=== PATIENT | male | born 1980 | race Caucasian/White ===

== ENCOUNTER → 2022-06-30 10:18 | Outpatient (BNVA) | payer OTHER, SELFPAY | PROVIDERS: Visit Provider Family Medicine | DX: R53.83 Other fatigue (principal) | CPT/HCPCS: 85025 ==

== ENCOUNTER → 2022-07-04 07:59 | Outpatient (BNVA) | payer OTHER, SELFPAY | PROVIDERS: Visit Provider Family Medicine | DX: R53.83 Other fatigue (principal) | CPT/HCPCS: 80061; 82040; 84270; 84403; 84439; 84443; 85025 ==

== ENCOUNTER → 2022-07-17 10:33 | Outpatient (BNVA) | payer OTHER, SELFPAY | PROVIDERS: Visit Provider Family Medicine | DX: R53.83 Other fatigue (principal) | CPT/HCPCS: 85025 ==

== ENCOUNTER → 2022-12-19 13:46 | Outpatient (BNVA) | payer OTHER, SELFPAY | PROVIDERS: Visit Provider Nurse Practitioner Family | DX: R19.7 Diarrhea, unspecified (principal); R50.9 Fever, unspecified; R53.83 Other fatigue | CPT/HCPCS: 80053; 85025; 87400 ==

== ENCOUNTER → 2024-01-04 09:47 | Outpatient (BNVA) | payer OTHER, SELFPAY | PROVIDERS: PCP Nurse Practitioner Family; Visit Provider Nurse Practitioner Family | DX: E78.00 Pure hypercholesterolemia, unspecified (principal) | CPT/HCPCS: 80053; 80061; 84443 ==

== ENCOUNTER → 2024-08-01 11:00 | Outpatient (BNVA) | payer OTHER, SELFPAY | PROVIDERS: PCP Nurse Practitioner Family; Visit Provider Nurse Practitioner Family | DX: E78.00 Pure hypercholesterolemia, unspecified (principal) | CPT/HCPCS: 80053; 80061 ==

== ENCOUNTER → 2025-08-21 08:41 | Outpatient (BNVA) | payer OTHER, SELFPAY | PROVIDERS: PCP Nurse Practitioner Family; Visit Provider Nurse Practitioner Family | DX: E78.00 Pure hypercholesterolemia, unspecified (principal) | CPT/HCPCS: 80053; 80061; 85025 ==

== ENCOUNTER → 2025-09-11 09:44 | Outpatient (BNVA) | payer OTHER, SELFPAY | PROVIDERS: PCP Nurse Practitioner Family; Visit Provider Nurse Practitioner Family | DX: R74.01 Elevation of levels of liver transaminase levels (principal) | CPT/HCPCS: 86705; 86706; 86709; 86803; 87340 ==

== ENCOUNTER 2025-09-25 06:16 | Outpatient (CLI) | payer OTHER, SELFPAY ==
--- NOTE | 2025-09-25 06:30 | USR_ITS ---
PROCEDURE INFORMATION: Exam: US Abdomen, Limited; Right Upper Quadrant Exam date and time: 09/25/2025 6:30 AM Age: 44 years old Clinical indication: Abnormal findings; Abnormal lab test; Elevated liver enzymes; Additional info: R74.01 - elevation of levels of liver transaminase levels. No history of recent trauma or surgery is provided. TECHNIQUE: Imaging protocol: Real time ultrasound of the abdomen with image documentation. Limited exam focused on the right upper quadrant. COMPARISON: No relevant prior studies are currently available to evaluate for interval change or stability. FINDINGS: Liver: The liver measures 13.7 cm. The hepatic echotexture is slightly heterogeneous, increased. No contour abnormalities are currently appreciated. There are some questionable low echogenic, cystic foci of the liver although could also represent some subtle biliary ductal prominence some too small to characterize. Gallbladder: Clinical history of previous cholecystectomy correspondingly with no fluid-filled gallbladder appreciated about the expected anatomic location. Biliary ducts: The common bile duct measures 0.4 cm.No echogenic obstructive calculus is currently appreciated.Distal most, ampullary level evaluation is limited. Pancreas: The pancreas is largely obscured. Right kidney: The right kidney measures 10.9 x 5.5 x 5.3 cm. No echogenic obstructive calculus or hydronephrosis is appreciated. The right renal cortical thickness is around 1.1 cm. There is some slightly low echogenic focus and could also represent some parenchymal averaging or subtle cyst for example measuring around 1.2 x 1.4 cm. Aorta: The central vessels are somewhat obscured.There is some bowel-gas, penetration artifact present. Distal aortic measurement provided of 1.4 cm with no adjacent fluid collections currently appreciated. Inferior vena cava: Proximal IVC is demonstrated. Portal venous: The portal venous flow velocity is borderline, low normal. Intraperitoneal space: No significant free fluid is appreciated. US/US liver [id number] IMPRESSION: 1. There is some heterogeneous, increased echotexture of the liver overall.This can be seen with processes including steatosis as well as hepatic disease related changes. 2. There appear to be some small cystic foci albeit too small to characterize of the hepatic level as well as some areas suggestive of some intrahepatic biliary ductal prominence. No echogenic obstructive calculus or distal dilatation is currently appreciated. Overall, consider hepatobiliary laboratory profile studies. If there is concern for hepatic disease and/or jaundice then consider MRCP. 3. No free fluid collections are appreciated.
== END 2025-09-25 06:17 | disposition home or self-care (01) ==
LOC: RAD 06:17
PROVIDERS: PCP Nurse Practitioner Family; Visit Provider Nurse Practitioner Family
DX: R74.01 Elevation of levels of liver transaminase levels (principal); K76.0 Fatty (change of) liver, not elsewhere classified; R93.2 Abnormal findings on diagnostic imaging of liver and biliary tract; K76.89 Other specified diseases of liver; Z90.49 Acquired absence of other specified parts of digestive tract; N28.89 Other specified disorders of kidney and ureter
CPT/HCPCS: 76705

== ENCOUNTER 2025-10-27 09:08 | Outpatient (CLI) | payer OTHER, SELFPAY ==
--- NOTE | 2025-10-27 09:30 | MR_ITS ---
WS: [id number] MRCP ([facility] CHOLANGIOPANCREATOGRAPHY) HISTORY: R74.01 - Elevation of levels of liver transaminase levels COMPARISON: Liver ultrasound 09/25/2025 TECHNIQUE: Multiple sequences are performed to evaluate the intra and extrahepatic ducts. Prior cholecystectomy. No intrahepatic duct dilatation. Common bile duct is normal size. No focal stenosis or irregularity within the common bile duct. Common bile duct measures 4.7 mm. Normal tapering towards the ampulla of Vater. Normal pancreatic duct. Lung bases are clear. No pleural effusion. Normal size heart. Very mild loss of signal on the out of phase imaging consistent with mild hepatic steatosis. No adrenal mass. The visualized pancreas is normal. Normal size spleen. No ascites or adenopathy. MR/MR MRCP [id number] IMPRESSION: 1. Prior cholecystectomy. 2. No intrahepatic duct dilatation. 3. Normal common bile duct. 4. Very mild hepatic steatosis. 5. No ascites.
== END 2025-10-27 09:09 | disposition home or self-care (01) ==
LOC: RAD 09:17
PROVIDERS: PCP Nurse Practitioner Family; Visit Provider Nurse Practitioner Family
DX: R74.01 Elevation of levels of liver transaminase levels (principal); R93.2 Abnormal findings on diagnostic imaging of liver and biliary tract; Z90.49 Acquired absence of other specified parts of digestive tract; K76.0 Fatty (change of) liver, not elsewhere classified
CPT/HCPCS: 74181